=== PATIENT | female | born 1965 | race Caucasian/White ===

== ENCOUNTER 2016-06-20 05:48 | Emergency (ER) | payer MEDICARE, MEDICAID ==
[~2016-06-20 05:48] MED LIST: ACETAMINOPHEN-C1 TA PO; ALAVERT10 M1 PO; ALAVERT10 MG PO; ALBUTEROL SULF8.5 GM IH; ALBUTEROL17 GM; ALBUTEROL17 GM INH; ALLERGY MEDICAT25 MG PO; ALLERGY10 M1 PO; ALLERGY10 M3 PO; ALLERGY10 MG PO; ALTACE2.5 M1 PO; AMOX TR-K CLV1 EAC2 PO; ASPIRIN325 MG PO; ATARAX25 MG PO; AUGMENTIN 875-1 EAC2 PO; B-1100 MG PO; BENTYL10 MG PO; BUSPAR10 MG PO; BUSPAR15 MG; BUSPAR15 MG PO; BUSPAR30 MG PO; BUSPAR5 MG; CARAFATE1 G/10 ML PO; CEFUROXIME500 M1 PO; CELEXA40 MG PO; CETIRIZINE HCL10 M1 PO; CIPRO500 MG PO; CLONAZEPAM0.5 MG PO; COLACE100 MG PO; COUMADIN2 MG PO; COUMADIN5 MG PO; COUMADIN6 MG PO; CRESTOR10 MG PO; CYCLOBENZAPRINE10 M1 PO; CYCLOBENZAPRINE10 MG; CYMBALTA20 MG PO; CYMBALTA30 MG PO; CYMBALTA60 M1 PO; CYMBALTA60 MG PO; DARVOCET-N 1001 EA PO; DDAVP0.2 MG; DDAVP0.2 MG PO; DESMOPRESSIN A0.2 M1 PO; DESMOPRESSIN A0.2 M2 PO; DETROL LA4 MG; DICLOFENAC SODI75 MG PO; DICYCLOMINE HCL10 MG PO; DIPHENOXYLATE 2.1 EA PO; DITROPAN5 M1 PO; DITROPAN5 MG PO; DULOXETINE HCL60 M1 PO; FLEXERIL10 MG PO; FLONASE16 GM; FLONASE16 GM NS; FOLIC ACID1 MG PO; GABAPENTIN800 MG PO; GEODON80 MG; GEODON80 MG PO; HYDRALAZINE HCL25 MG PO; HYDROCODON-ACE1 EA17 PO; HYDROXYZINE HCL25 M1 PO; HYDROXYZINE HCL25 MG PO; HYDROXYZINE HCL50 MG PO; HYDROXYZINE PAM25 MG; IMITREX100 M2 PO; LAMICTAL100 M1 PO; LAMICTAL100 M2 PO; LAMICTAL100 MG; LAMICTAL100 MG PO; LAMICTAL150 MG; LAMICTAL200 M1 PO; LAMICTAL200 MG; LAMICTAL200 MG PO; LAMICTAL25 M2 PO; LAMOTRIGINE100 MG PO; LASIX20 MG PO; LEXAPRO10 MG PO; LEXAPRO20 MG; LEXAPRO20 MG PO; LITHIUM CARBON300 MG PO; LITHIUM CARBON600 MG PO; LOFIBRA160 MG; LORATADINE10 M1 PO; LORAZEPAM0.5 M1 PO; LOVENOX120 MG/0.8 SQ; LYRICA150 MG PO; MAALOX ADVANCE355 ML PO; MACROBID 100 M100 MG PO; MAXALT10 MG PO; MECLIZINE HCL25 MG PO; MELOXICAM15 MG PO; METFORMIN HCL500 MG PO; MIRALAX17 G1 PO; MOBIC PO; MONTELUKAST SOD10 M1 PO; MOTRIN800 MG PO; MULTIVITAMIN1 TAB PO; NABUMETONE500 MG PO; NAPROXEN SODIU500 MG PO; NAPROXEN SODIU550 M2 PO; NAPROXEN250 M1 PO; NAPROXEN500 MG PO; NEILMED SINUS NS; NEURONTIN300 MG PO; NEURONTIN600 MG PO; NEURONTIN800 MG PO; NICODERM21 MG/PATC TD; NORCO 5/325 TAB1 TAB PO; NORCO 7.5/325 T1 TAB PO; NUCYNTA50 MG PO; OMEPRAZOLE10 MG; OMEPRAZOLE20 M2 PO; OMEPRAZOLE20 MG; OMEPRAZOLE20 MG PO; OMEPRAZOLE40 MG PO; ONE-TABLET-DAI1 EACH PO; PANTOPRAZOLE SO40 M3 PO; PERCOCET 5/3251 TAB PO; PERCOCET 7.5/321 TA1 PO; PREDNISONE10 M1 PO; PREDNISONE20 M1 PO; PREMARIN0.625 MG; PREMARIN0.625 MG PO; PRIMARIN; PROMETHAZINE25 MG PO; PROTONIX40 MG; PROVENTIL HFA6.7 G1 IH; PROVENTIL17 GM IH; RAMIPRIL5 MG PO; RISPERDAL0.25 MG PO; RITALIN; RIZATRIPTAN10 M2 PO; SEROQUEL200 MG PO; SINGULAIR10 MG PO; SKELAXIN800 MG PO; SPIRIVA18 MCG IH; SUDOGEST30 M1 PO; SULINDAC PO; SYMBICORT; SYMBICORT 160-4.6 GM IH; TIZANIDINE HCL4 M2 PO; TOPAMAX100 M1 PO; TOPAMAX25 M1 PO; TOPAMAX50 M2 PO; TRAZODONE HCL100 M1 PO; TRAZODONE HCL100 MG; TRAZODONE HCL100 MG PO; TRAZODONE HCL150 MG PO; TRAZODONE100 MG; TRAZODONE100 MG PO; TRAZODONE50 MG PO; TRICOR145 M1; TRICOR145 MG; TRICOR160 MG; TRIGLIDE160 M1 PO; TRIGLIDE160 MG PO; TYLENOL #31 TA1 PO; TYLENOL #31 TA2 PO; TYLENOL W/CODEI1 TAB PO; TYLENOL WITH C1 EACH PO; VESICARE5 MG PO; VIIBRYD40 MG PO; VOLTAREN GEL 1100 G1 TOP; WARFARIN SODIUM2 MG PO; WARFARIN SODIUM5 MG PO; ZETIA10 MG; ZOCOR10 MG; ZOFRAN ODT4 MG/UDTAB PO; ZYPREXA ZYD10 MG/TAB PO; ZYPREXA10 MG PO
[2016-06-20 07:02] LABS: URINE BILIRUBIN NEGATIVE (NEG); URINE BLOOD NEGATIVE (NEG); URINE GLUCOSE (UA) NEGATIVE (NEG); URINE KETONE NEGATIVE (NEG); URINE LEUKOCYTE ESTERASE POSITIVE (NEG); URINE NITRITE NEGATIVE (NEG); URINE PROTEIN NEGATIVE (NEG); URINE SPECIFIC GRAVITY 1.015 (1.003-1.030)
[2016-06-20 07:05] LABS: URINE APPEARANCE HAZY; URINE COLOR YELLOW
[2016-06-20 07:11] LABS: URINE EPITHELIAL CELLS 0-4 /[HPF] (0-10); URINE RBC 0-2 /[HPF] (0-5)
== END 2016-06-20 07:30 ==
LOC: EDMED 05:48
PROVIDERS: Emergency Medicine
DX: M54.5 Low back pain (principal); M19.90 Unspecified osteoarthritis, unspecified site; F31.9 Bipolar disorder, unspecified; K21.9 Gastro-esophageal reflux disease without esophagitis; F17.200 Nicotine dependence, unspecified, uncomplicated; Z79.899 Other long term (current) drug therapy
CPT/HCPCS: J1200; J1885; J2060; J2270